=== PATIENT | female | born 1955 | race Caucasian/White ===

== ENCOUNTER 2018-02-02 05:49 | Inpatient (IN) | payer OTHER ==
[2018-01-27 10:52] VITALS: BMI 28.3
[2018-02-02] MEDS ORDERED: MIDAZOLAM HCL 2 MG/2 ML SINGLE DOSE VIAL ONE (06:50)
[2018-02-02] MEDS ORDERED: BUPIVACAINE HCL/PF (5 MG/ML) 30 ML VIAL IJ ONE (06:51)
[2018-02-02] MEDS ORDERED: SODIUM CHLORIDE 0.9% P/F 10 ML VIAL IJ ONE (06:51)
[2018-02-02] MEDS ORDERED: BUPIVACAINE LIPOSOME/PF (EXPAREL) 266 MG/20 ML VIAL ONE (06:51)
[2018-02-02] MEDS ORDERED: CELECOXIB 200 MG CAPSULE PO ONE (07:00)
[2018-02-02] MEDS ORDERED: TRANEXAMIC ACID 1000 MG/10 ML VIAL IVPUSH ONE (07:00)
[2018-02-02] MEDS ORDERED: VANCOMYCIN 1,000 MG in DEXTROSE 5%-WATER - 250 ML IVPB ONE (07:00)
[2018-02-02] MEDS ORDERED: oxyCODONE HCL 10 MG SUSTAINED ACTING TABLET PO ONE (07:00)
[2018-02-02] MEDS ORDERED: BENZOIN/ALOE VERA/STORAX/TOLU 58 ML BOTTLE ONE (07:09)
[2018-02-02] MEDS ORDERED: SUCCINYLCHOLINE CHLORIDE 200 MG/10 ML VIAL ONE (07:39)
[2018-02-02] MEDS ORDERED: ONDANSETRON 4 MG/2 ML VIAL ONE (07:39)
[2018-02-02] MEDS ORDERED: DEXAMETHASONE SOD PHOSPHATE 4 MG/1 ML VIAL ONE (07:39)
[2018-02-02] MEDS ORDERED: PROPOFOL 20 ML ONE ×3 (07:39→08:01)
[2018-02-02] MEDS ORDERED: BUPIVACAINE HCL/PF 0.5% (5MG/ML) 10 ML VIAL ONE (07:45)
[2018-02-02] MEDS ORDERED: ceFAZolin SODIUM 1 GM VIAL ONE ×3 (07:46→09:56)
[2018-02-02] MEDS ORDERED: PHENYLEPHRINE HCL 10 MG/1 ML SINGLE DOSE VIAL ONE (09:03)
[2018-02-02] MEDS ORDERED: ePHEDrine SULFATE 50 MG/1 ML AMPULE ONE (09:05)
[2018-02-02] MEDS ORDERED: MAG HYDROX/AL HYDROX/SIMETH 30 ML UNIT-DOSE CUP PO PRN (09:56)
[2018-02-02] MEDS ORDERED: ONDANSETRON 4 MG/2 ML VIAL IVPUSH PRN (09:56)
[2018-02-02] MEDS ORDERED: MAGNESIUM HYDROX 2400MG/30ML ORAL SUSPENSION 30 ML CUP PO PRN (09:56)
[2018-02-02] MEDS ORDERED: LACTATED RINGERS SOLUTION 1,000 ML IV SCH (10:00)
--- NOTE | 2018-02-02 10:00 | PN ---
Progress Note (short form) - Note Progress Note: 62F s/p left total knee replacement POD #0. -Pain control. -DVT PPx: -Chemical: ASA 81mg PO BID x 6 weeks. -Mechanical: WILLIAMS's, SCD's. -Incentive spirometry. -PT/OT/Rehab, OOB. -WBAT LLE. -Antibiotics: Ancef x 2 post op doses. -f/u post-op trial of void. -Diet as tolerated. -Keep dressing clean & dry. -Care per medical hospitalist team. -f/u [facility] [place] office 02/11/2018; call for appointment; [phone]. -Will follow. Kamar Pickard MD (Orthopaedic Surgery).
--- NOTE | 2018-02-02 10:03 | OP ---
Operative Note - Note: Operative Date: 02/02/18 Pre-Operative Diagnosis: Left knee DJD. Valgus deformity. Fixed flexion deformity Operation: 1. Left total knee replacement. 2. Left knee extensor mechanism lateral release Implants: [place]. Femur - 4. Tibia - 5. Poly - 11mm, TS. Patella - 27mm Post-Operative Diagnosis: Same as Pre-op Surgeon: Kamar Pickard Transit Clerk: Ash Pickard Anesthesiologist/SPORTS ANCHOR: Henny Jalloh Anesthesia: Spinal Estimated Blood Loss (mls): 0 Drains & Tubes with Location: 1 x deep HemoVac Fluid Volume Replaced (mls): 1,000 Operative Report Dictated: Yes
[2018-02-02] MEDS ORDERED: ACETAMINOPHEN 325 MG TABLET (FP) PO ONE (11:31)
[2018-02-02] MEDS: oxyCODONE HCL 5 MG TABLET PO PRN ×4 (13:52→20:05)
[2018-02-02] MEDS: ACETAMINOPHEN 325 MG TABLET (FP) PO SCH (17:14)
[2018-02-02] MEDS: CEFAZOLIN 1 GM/D5W 1 GRAM/50 ML BAG IVPB SCH (17:15)
--- NOTE | 2018-02-02 17:40 | CONSULT ---
Consultation: REQUESTING PROVIDER: Dr. Kamar Pickard CONSULT REQUEST: We have been asked to medically manage this patient perioperatively. HISTORY OF PRESENT ILLNESS: 62 year-old female with a PMH significant for anxiety, left knee DJD s/p left total knee replacement earlier today. REVIEW OF SYSTEMS: CONSTITUTIONAL: Absent: fever, chills, diaphoresis, generalized weakness, malaise, loss of appetite, weight change HEENT: Absent: rhinorrhea, nasal congestion, throat pain, throat swelling, difficulty swallowing, mouth swelling, ear pain, eye pain, visual changes CARDIOVASCULAR: Absent: chest pain, syncope, palpitations, irregular heart rate, lightheadedness , peripheral edema RESPIRATORY: Absent: cough, shortness of breath, dyspnea with exertion, orthopnea, wheezing, stridor, hemoptysis GASTROINTESTINAL: Absent: abdominal pain, abdominal distension, nausea, vomiting, diarrhea, constipation, melena, hematochezia GENITOURINARY: Absent: dysuria, frequency, urgency, hesitancy, hematuria, flank pain, genital pain MUSCULOSKELETAL: +left knee pain Absent: myalgia, arthralgia, joint swelling, back pain, neck pain SKIN: Absent: rash, itching, pallor HEMATOLOGIC/IMMUNOLOGIC: Absent: easy bleeding, easy bruising, lymphadenopathy, frequent infections ENDOCRINE: Absent: unexplained weight gain, unexplained weight loss, heat intolerance, cold intolerance NEUROLOGIC: Absent: headache, focal weakness or paresthesias, dizziness, unsteady gait, seizure, mental status changes, bladder or bowel incontinence PSYCHIATRIC: Absent: anxiety, depression, suicidal or homicidal ideation, hallucinations. PHYSICAL EXAMINATION Vital Signs Temperature 97.7 F 02/02/18 10:39 Pulse Rate 43 L 02/02/18 12:01 Respiratory Rate 18 02/02/18 12:01 Blood Pressure 102/48 02/02/18 12:01 O2 Sat by Pulse Oximetry (%) 99 02/02/18 12:00 GENERAL: Awake, alert, and fully oriented, in no acute distress. HEAD: Normal with no signs of trauma. EYES: Pupils equal, round and reactive to light, extraocular movements intact, sclera anicteric, conjunctiva clear. No lid lag. EARS, NOSE, THROAT: Ears normal, nares patent, oropharynx clear without exudates. Moist mucous membranes. LUNGS: Breath sounds equal, clear to auscultation bilaterally. No wheezes, and no crackles. No accessory muscle use. HEART: Regular rate and rhythm, S1 and S2 without murmur, rub or gallop. ABDOMEN: Soft, nontender, not distended UPPER EXTREMITIES: 2+ pulses, warm, well-perfused. No cyanosis. No clubbing. Cap refill <2 seconds. No peripheral edema. LOWER EXTREMITIES: SCD's, TEDs; surgical wound not visualized NEUROLOGICAL: Cranial nerves II-XII intact. Normal speech. Active Medications Generic Name Dose Route Start Last Admin Trade Name Freq PRN Reason Stop Dose Admin Acetaminophen 650 mg 02/02/18 18:00 02/02/18 17:14 Tylenol - PO 02/05/18 17:59 650 mg Q6H SHARON Administration Al Hydroxide/Mg Hydroxide 30 ml 02/02/18 09:56 Mylanta Oral Suspension - PO Q4H PRN DYSPEPSIA Aspirin 81 mg 02/02/18 22:00 Asa - PO BID SHARON Fentanyl 25 mcg 02/02/18 10:43 Sublimaze Injection - IVPUSH [id number] PRN PAIN-PACU ORDER X 4 DOSES ONLY Cefazolin Sodium 1 gram in 50 mls @ 100 mls/hr 02/02/18 17:00 02/02/18 17:15 Ancef 1 Gm Premixed Ivpb - IVPB 02/03/18 01:29 100 mls/hr Q8H SHARON Administration Lactated Ringer's 1,000 mls @ 100 mls/hr 02/02/18 10:00 Lactated Ringers Solution IV 02/03/18 06:00 ASDIR SHARON Magnesium Hydroxide 30 ml 02/02/18 09:56 Milk Of Magnesia - PO PRN PRN CONSTIPATION Ondansetron HCl 4 mg 02/02/18 09:56 Zofran Injection IVPUSH Q6H PRN NAUSEA Oxycodone HCl 5 mg 02/02/18 10:44 02/02/18 14:34 Roxicodone - PO 5 mg Q3H PRN Administration PAIN LEVEL 1-5 Oxycodone HCl 10 mg 02/02/18 10:44 02/02/18 17:15 Roxicodone - PO 10 mg Q3H PRN Administration PAIN LEVEL 6-10 Oxycodone HCl 10 mg 02/02/18 22:00 Oxycontin - PO 02/05/18 10:44 BID SHARON Pantoprazole Sodium 40 mg 02/02/18 10:00 Protonix - PO DAILY SHARON Senna/Docusate Sodium 2 tablet 02/02/18 10:00 Pericolace - PO BID [facility] ASSESSMENT/PLAN 62 year-old female with a PMH significant for anxiety, left knee DJD s/p left total knee replacement earlier today. Left total knee replacement 02/02 --perioperative antibiotics per surgery --Tylenol, oxycontin, oxycodone for pain --Zofran for nausea --protonix --bowel regimen: pericolace, milk of magnesia FEN Fluids: PO intake adequate Electrolytes: replete as indicated Nutrition: diabetic low sodium DVT prophylaxis: mechanical only, SCDs, oob, ambulation Physical therapy Dispo: We will continue to follow the patient. Thank you for this consultative opportunity. Full code. Visit type - Emergency Visit Emergency Visit: No - New Patient This patient is new to me today: Yes Date on this admission: 02/03/18 - Critical Care Critical Care patient: No
[2018-02-02] MEDS: oxyCODONE HCL 10 MG SUSTAINED ACTING TABLET PO SCH (21:56)
[2018-02-02] MEDS: SENNOSIDES/DOCUSATE COMBO (SENNA PLUS) TABLET (UD) PO SCH (21:56)
[2018-02-02] MEDS: ASPIRIN 81 MG CHEWABLE TABLETS PO SCH (21:57)
--- NOTE | 2018-02-02 23:58 | OP ---
DATE OF OPERATION: DATE OF DICTATION: 02/02/2018 SURGEON: Kamar Pickard M.D. CLASSIFICATION AND TREATMENT DIRECTOR: Ash Pickard M.D., Xiomara Winter PREOPERATIVE DIAGNOSIS: Fixed valgus, fixed flexed tricompartment osteoarthritis left knee. POSTOPERATIVE DIAGNOSIS: Fixed valgus, fixed flexed tricompartment osteoarthritis left knee. OPERATION PERFORMED: 1. Left posterior stabilized total knee arthroplasty ([place]). 2. Lateral release. ANESTHESIA: Spinal anesthesia with general conscious sedation. ANTIBIOTICS GIVEN: 2 g Kefzol, 1 g vancomycin preoperative, 1 g Kefzol given at the end of the procedure. OPERATION DETAILS: The patient was correctly identified, brought in operating room. Left lower extremity was prepped, pre-draped in the routine manner with Betadine scrub solution, wiped with alcohol, DuraPrep applied. Preoperative evaluation was review of the knee with a fixed flexed deformity of about 15 degrees and fixed valgus deformity of almost 40 degrees. Severe deformity encountered. Range of movement was from 15 degrees to 80 degrees. Timeout was called. Imaging was available for intraoperative evaluation. Midline incision utilized. The routine dissection was taken, splitting the quadriceps tendon longitudinally, coursing around the medial parapatellar margin to medial tubercle. The medial soft tissue was freed with a sharp blade off the proximal tibia. The patella was capsized laterally. The knee was flexed once the patella had been capsized to almost 100 to 110 degrees and held in this position. The bony cuts were made, first the patella from patella ligament to quadriceps tendon, and the jig applied for a 27 mm patella button. The tibial cut was made neutral to the level of the genaro on the lateral side. We used the extramedullary jig alignment system of [place]. The femur was then cut appropriately using the jig system. We proximalized the joint line by 4 mm. This gave us a fixed flexion deformity. The femoral component measured size 5, but we elected to use the size 4 Triathlon poly PS size 4 femoral component, and trialing this with a size 5 universal baseplate and a size 11 polyethylene liner, gave anatomical alignment on the table after all appropriate jig cuts were made, and we were very satisfied with this outcome accordingly. Stability was excellent with the 11 mm spacer, and range of movement with quadriceps tendon held with Hulka clamps revealed a range of movement from 0 to about 90 degrees, this because of the tightness of the quadriceps mechanism. The patella was subluxing completely off, necessitating a lateral release. This was performed from a distal to superior hoping to save the superior lateral retinacular vessel. Once this had been performed, cementing was in 1 stage after thorough preparation and lavage with bone bed after all the jig cuts were made. Cementing was in one stage, patella, femur, and then tibia, size 11 mm polyethylene liner TS was utilized for stable fixation. The patella tracking after patella lateral release was excellent. Range of movement with the tissues closed was from 0 to 110 degrees. The closure was as follows: quadriceps tendon 1 Vicryl interrupted sutures, subcutaneous 1 and 2-0 Vicryl, skin 3-0 Monocryl with Steri-Strips, drainage one 8-inch Hemovac x1 which unfortunately came out at the end of the procedure. No complications. Difficult operation but went well. MD COURTNEY Thomson/[id number] MTDD
[2018-02-03] MEDS: CEFAZOLIN 1 GM/D5W 1 GRAM/50 ML BAG IVPB SCH (01:09)
[2018-02-03] MEDS: ACETAMINOPHEN 325 MG TABLET (FP) PO SCH ×3 (01:20→19:19)
[2018-02-03] MEDS: oxyCODONE HCL 5 MG TABLET PO PRN ×3 (01:23→20:08)
[2018-02-03 08:21] LABS: HEMOGLOBIN 12.3 GM/dl (10.7-15.3); MCH 31.6 pg (25.7-33.7); MEAN CELL VOLUME 92.8 fl (80-96); MEAN PLT VOLUME 8.8 fl (7.5-11.1); PLATELET COUNT 180 K/MM3 (134-434); RBC 3.88 M/mm3 (3.60-5.2); RDW 12.1 % (11.6-15.6); WHITE BLOOD COUNT 9.4 K/mm3 (4.0-10.8)
[2018-02-03 08:41] LABS: ANION GAP 5 MMOL/L (8-16); BLOOD UREA NITROGEN 11 mg/dl (7-18); CALCIUM 8.5 mg/dl (8.4-10.2); CHLORIDE 101 mmol/L (98-107); CO2 30 mmol/L (22-28); CREATININE 0.7 mg/dl (0.6-1.3); GLUCOSE,RANDOM 110 mg/dl (74-106); POTASSIUM 4.4 mmol/L (3.5-5.1); SODIUM 136 mmol/L (136-145)
--- NOTE | 2018-02-03 09:12 | PN ---
Progress Note (short form) - Note Progress Note: POD #1 Alert. Sitting in chair at bedside. C/o incisional tenderness. Adequate pain control via PRN meds. States shes been OOB and ambulated to bathroom. Voiding spontaneously. Tolerating PO diet. Denies n/v/f/c, CP or SOB. Last Vital Signs Temp Pulse Resp BP Pulse Ox 98.0 F 62 20 133/68 100 02/03/18 06:44 02/03/18 06:44 02/03/18 06:44 02/03/18 06:44 02/03/18 06:44 CBC, BMP 02/03/18 07:30 02/03/18 07:30 Gen: nad LLE: catarino wrap from toes to mid-thigh. Dressing c/d/i. Ice pack in place. Foot warm. Palpable DP/PT. Problem List - Problems (1) Left knee DJD Assessment/Plan: Left knee DJD. Valgus deformity. Fixed flexion deformity POD #1 s/p 1. Left total knee replacement. 2. Left knee extensor mechanism lateral release OOB and ambulate with PT --> WBAT Pain management PRN Ice pack DVT PPx with ASA 81mg PO BID x6 weeks & TEDs/SCD (non-op leg) Incentive Spirometer Cont care per Medicine DC planning --> f/u [facility] [place] [facility] --> call for an appointment Above plan discussed with Dr. Ash Pickard and agrees. Code(s): M17.12 - UNILATERAL PRIMARY OSTEOARTHRITIS, LEFT KNEE
[2018-02-03] MEDS: PANTOPRAZOLE 40 MG TABLET (FP) PO SCH ×2 (10:23→10:31)
[2018-02-03] MEDS: ASPIRIN 81 MG CHEWABLE TABLETS PO SCH ×2 (10:23→21:13)
[2018-02-03] MEDS: oxyCODONE HCL 10 MG SUSTAINED ACTING TABLET PO SCH ×2 (10:29→21:13)
[2018-02-03] MEDS: SENNOSIDES/DOCUSATE COMBO (SENNA PLUS) TABLET (UD) PO SCH ×2 (10:30→21:11)
--- NOTE | 2018-02-03 13:52 | PN ---
Physical Exam: SUBJECTIVE: Patient seen and examined at bedside. OBJECTIVE: Vital Signs Period Temp Pulse Resp BP Sys/Alvarado Pulse Ox Last 24 Hr 97.8 F-98.0 F 50-62 17-20 110-133/50-68 99-100 GENERAL: The patient is awake, alert, and fully oriented, in no acute distress. LUNGS: Breath sounds equal, clear to auscultation bilaterally, no wheezes, no crackles, no accessory muscle use. HEART: Regular rate and rhythm, S1, S2 ABDOMEN: Soft, nontender, nondistended LLE: Surgical dressing c/d/i; SCDs, TEDs NEUROLOGICAL: Cranial nerves II through XII grossly intact. Normal speech Laboratory Results - last 24 hr 02/03/18 02/03/18 07:30 07:30 WBC 9.4 RBC 3.88 Hgb 12.3 Hct 36.0 MCV 92.8 MCH 31.6 MCHC 34.0 RDW 12.1 Plt Count 180 MPV 8.8 Sodium 136 Potassium 4.4 Chloride 101 Carbon Dioxide 30 H Anion Gap 5 L BUN 11 Creatinine 0.7 Creat Clearance w eGFR > 60 Random Glucose 110 H Calcium 8.5 Active Medications Generic Name Dose Route Start Last Admin Trade Name Freq PRN Reason Stop Dose Admin Acetaminophen 650 mg 02/02/18 18:00 02/03/18 06:16 Tylenol - PO 02/05/18 17:59 650 mg Q6H SHARON Administration Al Hydroxide/Mg Hydroxide 30 ml 02/02/18 09:56 Mylanta Oral Suspension - PO Q4H PRN DYSPEPSIA Aspirin 81 mg 02/02/18 22:00 02/03/18 10:23 Asa - PO 81 mg BID SHARON Administration Fentanyl 25 mcg 02/02/18 10:43 Sublimaze Injection - IVPUSH [id number] PRN PAIN-PACU ORDER X 4 DOSES ONLY Magnesium Hydroxide 30 ml 02/02/18 09:56 Milk Of Magnesia - PO PRN PRN CONSTIPATION Ondansetron HCl 4 mg 02/02/18 09:56 Zofran Injection IVPUSH Q6H PRN NAUSEA Oxycodone HCl 5 mg 02/02/18 10:44 02/02/18 14:34 Roxicodone - PO 5 mg Q3H PRN Administration PAIN LEVEL 1-5 Oxycodone HCl 10 mg 02/02/18 10:44 02/03/18 06:15 Roxicodone - PO 10 mg Q3H PRN Administration PAIN LEVEL 6-10 Oxycodone HCl 10 mg 02/02/18 22:00 02/03/18 10:29 Oxycontin - PO 02/05/18 10:44 10 mg BID SHARON Administration Pantoprazole Sodium 40 mg 02/02/18 10:00 02/03/18 10:31 Protonix - PO 40 mg DAILY SHARON Administration Senna/Docusate Sodium 2 tablet 02/02/18 10:00 02/03/18 10:30 Pericolace - PO 2 tablet BID SHARON Administration ASSESSMENT/PLAN 62 year-old female with a PMH significant for anxiety, left knee DJD s/p left total knee replacement. Left total knee replacement 02/02 --POD #1 --perioperative antibiotics per surgery --Tylenol, oxycontin, oxycodone for pain --Zofran for nausea --protonix --bowel regimen: pericolace, milk of magnesia FEN Fluids: PO intake adequate Electrolytes: replete as indicated Nutrition: diabetic low sodium DVT prophylaxis: ASA 81mg BID x 6 weeks; SCDs, oob, ambulation Physical therapy Dispo: We will continue to follow the patient. Thank you for this consultative opportunity. Full code. Visit type - Emergency Visit Emergency Visit: No - New Patient This patient is new to me today: Yes Date on this admission: 02/03/18 - Critical Care Critical Care patient: No
--- NOTE | 2018-02-03 15:24 | PN ---
Progress Note (short form) - Note Progress Note: Anesthesiology Post-op 62 y.o. woman POD#1 s/p left TKA with regional/neuraxial anesthesia. She is walking with a walker with minimal difficulty. She does admit to some pain but it appears to be well managed with pain meds. VSS. 62 y.o. woman with stable post-operative course. Continue present management.
[2018-02-04] MEDS: ACETAMINOPHEN 325 MG TABLET (FP) PO SCH ×2 (06:41→06:45)
[2018-02-04] MEDS: oxyCODONE HCL 5 MG TABLET PO PRN (06:46)
[2018-02-04 06:52] VITALS: BP 112/55; PULSE 76; TEMP 99.3
[2018-02-04 08:18] LABS: HEMATOCRIT 33.3 % (32.4-45.2); HEMOGLOBIN 11.2 GM/dl (10.7-15.3); MCH 30.9 pg (25.7-33.7); MCHC 33.6 g/dl (32.0-36.0); MEAN CELL VOLUME 91.9 fl (80-96); MEAN PLT VOLUME 8.7 fl (7.5-11.1); PLATELET COUNT 159 K/MM3 (134-434); RBC 3.62 M/mm3 (3.60-5.2); RDW 12.5 % (11.6-15.6); WHITE BLOOD COUNT 10.2 K/mm3 (4.0-10.8)
--- NOTE | 2018-02-04 10:38 | DS ---
Physical Exam: SUBJECTIVE: Patient seen and examined OBJECTIVE: Vital Signs Period Temp Pulse Resp BP Sys/Alvarado Pulse Ox Last 24 Hr 97.4 F-99.3 F 67-105 18-20 100-151/41-74 98-100 PHYSICAL EXAM GENERAL: The patient is awake, alert, and fully oriented, in no acute distress. LUNGS: Breath sounds equal, clear to auscultation bilaterally, no wheezes, no crackles, no accessory muscle use. HEART: Regular rate and rhythm, S1, S2 ABDOMEN: Soft, nontender, nondistended LLE: Surgical dressing c/d/i; SCDs, TEDs NEUROLOGICAL: Cranial nerves II through XII grossly intact. Normal speech LABS Laboratory Results - last 24 hr 02/04/18 08:00 WBC 10.2 RBC 3.62 Hgb 11.2 Hct 33.3 MCV 91.9 MCH 30.9 MCHC 33.6 RDW 12.5 Plt Count 159 MPV 8.7 HOSPITAL COURSE: Date of Admission:02/02/18 Date of Discharge: 02/04/18 62 year-old female with a PMH significant for anxiety, left knee DJD s/p left total knee replacement on 02/02. Uncomplicated post-operative course. Left total knee replacement 02/02 --perioperative antibiotics per surgery --Tylenol, oxycontin, oxycodone for pain --Zofran for nausea --protonix --bowel regimen: pericolace, milk of magnesia --ASA 81mg BID x 6 weeks Minutes to complete discharge: 35 Discharge Summary Reason For Visit: LEFT KNEE OSTEOARTHRITIS Current Active Problems Left knee DJD (Acute) Condition: Improved - Instructions Diet, Activity, Other Instructions: Dr. Pickard Discharge Instructions for Knee Replacement Post Operative Instructions Physical activity Physical Therapist will come to your home for the first 5 days. You will be set up with outpatient PT at your first post-operative visit. Use assistive devices for ambulation at all times. Weight bearing as tolerated on your surgical side. Do not put pillow under knee. May put pillow under heel. Wound care Leave your surgical dressing in place. Do not change the dressing until seen by your surgeon in the office. No baths or showers. Do not submerge your incision. Do not apply any ointments or lotions to your incision. Please call the office if your dressing is soiled/dirty or is falling off. Apply Graduated Compression Stockings (TEDS) to both lower extremities - remove daily for hygiene ONLY. Diet There are no dietary restrictions. Eat healthy, high-fiber foods. Drink 6 to 8 glasses of liquid each day. This will assist in keeping your bowels are regular. Pain management Any pain prescription medication ordered should be taken as prescribed for moderate to severe pain. Do not take additional Tylenol while taking Percocet. Take Aspirin 81 mg two times a day for a total of 6 weeks to prevent blood clots. Call Dr. Pickard for any of the following: Severe pain not relieved by medication Fever of 101 or higher Excessive bleeding or drainage on dressing Inability to urinate If you experience chest pain or shortness of breath, please seek emergency care immediately. Please call the office at to confirm your post-op appointment for the week following surgery. Disposition: VNS/HOME HEALTH CARE - Home Medications Comprehensive Discharge Medication List: Ambulatory Orders Aspirin [ASA -] 81 mg PO WEEKLY 01/27/18 Calcium Phosphate Trib/Vit D3 [Calcium + Vitamin D3 Gummies] 1 each PO DAILY This patient is new to me today: No Emergency Visit: No Critical Care patient: No - Discharge Referral Referred to [facility] No
--- NOTE | 2018-02-07 15:16 | PATH ---
Surgical Pathology Report Patient Name: BJ YODER Med. Rec. #: [id number] /Age/Gender: 1955 (Age: 62) / F Account: [id number] Location: [facility] MED-SURG Taken: 02/02/2018 Received: 02/02/2018 Reported: 02/07/2018 Physicians: Kamar Pickard M.D. Specimen(s) Received LEFT KNEE BONES Clinical History Left knee osteoarthritis Final Diagnosis KNEE BONES, LEFT, TOTAL KNEE REPLACEMENT: DEGENERATIVE JOINT DISEASE. Electronically Signed Farhana Brooks M.D. Gross Description Received in formalin labeled "left knee bones," is a 13.0 x 10.0 x 2.0 cm aggregate of multiple gutierrez portions of bone and soft tissue. The tibial plateau measures 7.7 x 6.0 x 1.7 cm. No there are no areas of eburnation identified. The articular surfaces are gutierrez-yellow and diffusely granular. The underlying trabecular bone is yellow and hard. [employer] sections are submitted in one cassette, following decalcification. 02/04/2018 [facility]02/04/2018
== END 2018-02-04 11:22 | disposition home health service (06) | DRG 302 ==
LOC: FM/S 05:49
PROVIDERS: ADMIT Orthopaedic Surgery Orthopaedic Surgery of the Spine; ATTEND Orthopaedic Surgery Orthopaedic Surgery of the Spine
PROC: 0SRD0J9 Replacement of Left Knee Joint with Synthetic Substitute, Cemented, Open Approach (ICD-10-PCS; principal; 2018-02-02 08:00)
DX: M17.12 Unilateral primary osteoarthritis, left knee (principal); M21.062 Valgus deformity, not elsewhere classified, left knee; M21.262 Flexion deformity, left knee; F41.9 Anxiety disorder, unspecified
CPT/HCPCS: 36415; 73560-TC-LT-FY; 80048; 85027; 88304-TC; 88311-TC; 94760; 97116-GP; 97162-GP

== ENCOUNTER 2018-03-30 07:54 | Day surgery (SDC) | payer OTHER ==
[2018-03-22 14:47] VITALS: BMI 28.3
[2018-03-30] MEDS ORDERED: TRANEXAMIC ACID 1000 MG/10 ML VIAL IVPUSH ONE (08:06)
[2018-03-30] MEDS ORDERED: VANCOMYCIN 1,000 MG in DEXTROSE 5%-WATER - 250 ML IVPB ONE (08:06)
[2018-03-30] MEDS ORDERED: morphine CARPU-JECT 10 MG/1 ML DISP.SYRIN ONE (08:26)
[2018-03-30] MEDS ORDERED: BUPIVACAINE HCL/PF 2.5 MG/ML - 30 ML VIAL IJ ONE (08:29)
[2018-03-30] MEDS ORDERED: KETOROLAC TROMETHAMINE 60 MG/2 ML VIAL ONE (08:29)
[2018-03-30] MEDS ORDERED: SODIUM CHLORIDE 0.9% P/F 10 ML VIAL IJ ONE ×2 (08:30→11:54)
[2018-03-30] MEDS ORDERED: EPINEPHrine/PF 1 MG/1 ML (1:1,000) AMPULE ONE (08:30)
[2018-03-30] MEDS ORDERED: BENZOIN TINCTURE SWABSTICK TP ONE (08:31)
[2018-03-30] MEDS ORDERED: MIDAZOLAM HCL 2 MG/2 ML SINGLE DOSE VIAL ONE (10:39)
[2018-03-30] MEDS ORDERED: BUPIVACAINE LIPOSOME/PF (EXPAREL) 266 MG/20 ML VIAL ONE ×2 (10:40→10:45)
[2018-03-30] MEDS ORDERED: PROPOFOL 20 ML ONE ×2 (11:44)
[2018-03-30] MEDS ORDERED: CLINDAMYCIN PHOSPHATE 600 MG/4 ML VIAL ONE (11:52)
[2018-03-30] MEDS ORDERED: VANCOMYCIN 1,000 MG VIAL (RESTRICTED TO ID ONLY) ONE (11:52)
[2018-03-30] MEDS ORDERED: METOPROLOL TARTRATE 5 MG/5 ML VIAL ONE (12:10)
--- NOTE | 2018-03-30 12:30 | PN ---
Progress Note (short form) - Note Progress Note: During limb skin prep, prior to beginning the case, patient manifest new-onset atrial fibrillation. After discussion with anesthesiology team, decision made to cancel the operation. Pt. will pursue outpatient cardiology consultation for further work-up and management. Pt. will follow-up with [facility] within 1-2 weeks of hospital discharge today. Kamar Pickard MD (Orthopaedic Surgery).
[2018-03-30] MEDS ORDERED: ONDANSETRON 4 MG/2 ML VIAL IVPUSH ONE (15:30)
[2018-03-30] MEDS ORDERED: ONDANSETRON 4 MG/2 ML VIAL ONE (16:12)
--- NOTE | 2018-03-30 16:19 | CON.CARD ---
Consult Consult Specialty:: Cardiology Referred by:: Dr. Pickard Reason for Consultation:: newly dx afib - History of Present Illness Chief Complaint: here for elective revision of TKR found to have newly dx afib with RVR History of Present Illness: 63 year old woman with h/o OA s/p L TKR, anxiety came today for elective revision of TKR, preop found to have newly diagnosed atrial fibrillation with RVR reportedly up to 150bpm. Pt did have spinal anesthesia but surgery was cancelled. Pt received IV Lopressor and was brought to recovery room where she remains in afib with controlled VR. Pt seen and examined in [facility]. Pt states she follows with a mica washer gluer due to h/ o panic attacks, she has had a stress test in the past that was normal. she was never told she has afib before. she does have intermittent palpitations attributed to her anxiety/panic attacks. denies chest pain, sob, pnd, orthopnea, LE edema. No lightheadedness, dizziness , syncope, or near syncope. - History Source History Provided By: Patient Limitations to Obtaining History: No Limitations - Past Medical History Psych: Yes: Anxiety - Alcohol/Substance Use Hx Alcohol Use: No - Smoking History Smoking history: Former smoker Have you smoked in the past 12 months: No If you are a former smoker, when did you quit?: 1987 - Social History Usual Living Arrangement: With Significant Other ADL: Independent History of Recent Travel: Yes Home Medications - Allergies Allergies/Adverse Reactions: Allergies Allergy/AdvReac Type Severity Reaction Status Date / Time amoxicillin Allergy Severe Itching Verified 03/22/18 14:47 beet Allergy Severe UNKNOWN Verified 03/22/18 14:47 ciprofloxacin [From Cipro] Allergy Severe Itching Verified 03/22/18 14:47 Penicillins AdvReac Severe Itching Verified 03/22/18 14:47 - Home Medications Home Medications: Ambulatory Orders Calcium Phosphate Trib/Vit D3 [Calcium + Vitamin D3 Gummies] 1 each PO DAILY Aspirin [ASA -] 81 mg PO BID tab.chew 02/04/18 Apixaban [Eliquis] 5 mg PO BID 30 Days #60 tablet 03/30/18 Metoprolol Succinate [Toprol Xl -] 25 mg PO DAILY #30 tab.sr.24h 03/30/18 Family Disease History - Family Disease History Family History: Denies Review of Systems - Review of Systems Constitutional: denies: No Symptoms, Chills, Diaphoresis, Fever, Lethargy, Loss of Appetite, Malaise, Night Sweats, Unintentional Wgt. Loss, Weakness, Other Eyes: denies: No Symptoms, Blind Spots, Blurred Vision, Double Vision, Eye Pain , Floaters, Photophobia, Recent Change in Vision, Other HENT: denies: No Symptoms, Difficult Swallowing, Ear Discharge, Ear Pain, Epistaxis, Gingival Bleeding, Hearing Loss, Mouth Swelling, Nasal Congestion, Ocular Prosthesis, Throat Pain, Toothache, Ringing in Ears, Other Neck: denies: No Symptoms, Decreased ROM, Lumps, Pain on Movement, Stiffness, Swollen Glands, Tenderness, Other Cardiovascular: reports: Palpitations. denies: No Symptoms, Chest Pain, Edema, Shortness of Breath, Other Respiratory: denies: No Symptoms, Cough, Exercise Intolerance, Hemoptysis, Orthopnea, PND, Snoring, SOB, SOB on Exertion, Wheezing, Other Gastrointestinal: denies: No Symptoms, Abdominal Pain, Bloating, Constipation, Diarrhea, Dysphagia, Indigestion, Melena, Nausea, Rectal Bleeding, Vomiting, Vomiting Blood, Other Genitourinary: denies: No Symptoms, Burning, Discharge, Dysuria, Flank Pain, Frequency, Hematuria, Incontinence, Lesions, Menses, Pain, Testicular Mass, Testicular Pain, Testicular Swelling, Urgency, Vaginal Bleeding, Other Breasts: denies: No Symptoms Reported, See HPI, Breast Implants, Discharge from Nipple, Lumps, Pain, Skin Changes, Other Musculoskeletal: denies: No Symptoms, Back Pain, Crepitus, Decreased ROM, Extremity Pain, Joint Pain, Joint Swelling, Muscle Pain, Muscle Cramps, Muscle Weakness, Other Integumentary: denies: No Symptoms, Blister, Bruising, Change in Color, Eczema, Erythema, Incision, Lesions, Lump, Pallor, Pruritis, Rash, Wound, Other Neurological: denies: No Symptoms, Change in LOC, Change in Speech, Confusion, Dizziness, Headache, Incoordination, Numbness, Parasthesia, Pre-Existing Deficit , Seizure, Syncope, Tremors, Unsteady Gait, Weakness, Other Endocrine: denies: No Symptoms, Excessive Sweating, Flushing, Increased Hunger, Increased Thirst, Intolerance to Cold, Intolerance to Heat, Unexplained Weight Gain, Unexplained Weight Loss, Other Hematology/Lymphatic: denies: No Symptoms, Easily Bruised, Excessive Bleeding, Swollen Glands, Other Psychiatric: denies: No Symptoms, Altered Sleep Pattern, Anxiety, Depression, Hallucinations, Panic, Paranoia, Suicidal, Other Vital Signs: Vital Signs Temperature 97.6 F 03/30/18 12:33 Pulse Rate 78 03/30/18 15:30 Respiratory Rate 14 03/30/18 15:30 Blood Pressure 105/74 03/30/18 15:30 O2 Sat by Pulse Oximetry (%) 100 03/30/18 15:30 Constitutional: Yes: Well Nourished, No Distress, Calm Eyes: Yes: WNL, Conjunctiva Clear, EOM Intact HENT: Yes: WNL, Atraumatic, Normocephalic Neck: Yes: WNL, Supple, Trachea Midline Respiratory: Yes: WNL, Regular, CTA Bilaterally Gastrointestinal: Yes: WNL, Normal Bowel Sounds, Soft Renal/: Yes: WNL Cardiovascular: Yes: Pulse Irregular. No: Regular Rate and Rhythm, Bradycardia , Tachycardia, Gallop, Rub, Varicosities JVD: No Carotid Bruit: No PMI: Non-Displaced Heart Sounds: Yes: S1, S2. No: Split S2, S3, S4, Clicks, Gallop, Rub, Bruit Murmur: No: Systolic Murmur, Diastolic Murmur Musculoskeletal: Yes: WNL Extremities: Yes: WNL Edema: No Peripheral Pulses WNL: Yes Neurological: Yes: Alert, Oriented Psychiatric: Yes: Alert, Oriented - Other Data ekg-Afib 76bpm, no sig st abnl Imaging - Results EKG: Report Reviewed, Image Reviewed Assessment/Plan 63 year old woman with h/o OA s/p L TKR, anxiety came today for elective revision of TKR, preop found to have newly diagnosed atrial fibrillation with RVR reportedly up to 150bpm. Pt did have spinal anesthesia but surgery was cancelled. Pt received IV Lopressor and was brought to recovery room where she remains in afib with controlled VR. Pt seen and examined in [facility]. Pt states she follows with a mica washer gluer due to h/ o panic attacks, she has had a stress test in the past that was normal. she was never told she has afib before. she does have intermittent palpitations attributed to her anxiety/panic attacks. Atrial fibrillation-newly diagnosed -likely paroxysmal afib -HR is currently well controlled, IV lopressor was given approximately 4 hours ago -CHADS-2 VASC score 1 c/w 1.9% annual risk of stroke -discussed risk vs benefit of using ASA alone or full AC for thromboembolic ppx -decided to start eliquis 5mg bid for now, pt will discuss further with her mica washer gluer (she has an appointment next wednesday) -d/w anesthesiology in regards to spinal anesthesia and AC and felt that safe to start 6 hours post spinal, she will start eliquis tomorrow am -start Toprol XL 25mg daily -Rx sent to pharmacy for both meds -pt is acceptable for discharge home from a cardiac standpoint with a plan to fup with her mica washer gluer next week (Dr. Bassett in [place])
[2018-03-30 17:08] VITALS: TEMP 98
[2018-03-30 18:44] VITALS: BP 127/68; PULSE 74
--- NOTE | 2018-03-31 09:22 | EKG ---
Test Reason : Blood Pressure : / mmHG Vent. Rate : 076 BPM Atrial Rate : 085 BPM P-R Int : 000 ms QRS Dur : 084 ms QT Int : 372 ms P-R-T Axes : 000 031 033 degrees QTc Int : 418 ms ATRIAL FIBRILLATION ABNORMAL ECG NO PREVIOUS ECGS AVAILABLE Confirmed by DURAN QUESADA MD ([id number]) on 03/31/2018 9:22:23 AM Referred By: Kamar Pickard Confirmed By:DURAN QUESADA MD
== END 2018-03-30 20:50 | disposition home or self-care (01) ==
LOC: FM/S 07:54 → UNDOADMIN 07:54 → FASU 07:54 → EDSTATUS 14:00 → FASU 20:50 → UNDODISIN 20:50
PROVIDERS: ATTEND Orthopaedic Surgery Orthopaedic Surgery of the Spine
PROC: 0SRW0JZ Replacement of Left Knee Joint, Tibial Surface with Synthetic Substitute, Open Approach (ICD-10-PCS; 2018-03-30)
PROC: 0SPW0JZ Removal of Synthetic Substitute from Left Knee Joint, Tibial Surface, Open Approach (ICD-10-PCS; principal; 2018-03-30 10:00)
DX: Z53.09 Procedure and treatment not carried out because of other contraindication (principal); M17.12 Unilateral primary osteoarthritis, left knee; I48.91 Unspecified atrial fibrillation; Z96.652 Presence of left artificial knee joint; Z87.891 Personal history of nicotine dependence; Z79.82 Long term (current) use of aspirin
CPT/HCPCS: 93005

== ENCOUNTER 2018-06-08 06:00 | Inpatient (IN) | payer OTHER ==
[2018-06-08] MEDS ORDERED: VANCOMYCIN 1 GRAM (PRE-DOCKED) 1,000 MG/250 ML BAG IVPB ONE (06:29)
[2018-06-08] MEDS ORDERED: DEXAMETHASONE SOD PHOSPHATE 4 MG/1 ML VIAL ONE ×2 (07:10→07:22)
[2018-06-08] MEDS ORDERED: VANCOMYCIN 1,000 MG VIAL (RESTRICTED TO ID ONLY) ONE (07:10)
[2018-06-08] MEDS ORDERED: SUCCINYLCHOLINE CHLORIDE 200 MG/10 ML VIAL ONE (07:10)
[2018-06-08] MEDS ORDERED: ceFAZolin SODIUM 1 GM VIAL ONE ×3 (07:10→10:02)
[2018-06-08] MEDS ORDERED: ONDANSETRON 4 MG/2 ML VIAL ONE ×3 (07:10→11:03)
[2018-06-08] MEDS ORDERED: PROPOFOL 20 ML ONE ×2 (07:10→07:23)
[2018-06-08 07:15] VITALS: BMI 29.2
[2018-06-08] MEDS ORDERED: LIDOCAINE HCL/PF 2% SDV 5ML VIAL ONE (07:22)
[2018-06-08] MEDS ORDERED: TRANEXAMIC ACID 1000 MG/10 ML VIAL ONE ×2 (07:22→10:02)
[2018-06-08] MEDS ORDERED: SODIUM CHLORIDE 0.9% P/F 10 ML VIAL IJ ONE (07:22)
[2018-06-08] MEDS ORDERED: BUPIVACAINE HCL/PF 0.5% (5MG/ML) 10 ML VIAL ONE (07:26)
[2018-06-08] MEDS ORDERED: BENZOIN/ALOE VERA/STORAX/TOLU 58 ML BOTTLE ONE (07:30)
[2018-06-08] MEDS ORDERED: BUPIVACAINE LIPOSOME/PF (EXPAREL) 266 MG/20 ML VIAL ONE (07:43)
[2018-06-08] MEDS ORDERED: MIDAZOLAM HCL 2 MG/2 ML SINGLE DOSE VIAL ONE ×2 (07:43→08:10)
[2018-06-08] MEDS ORDERED: ROCURONIUM BROMIDE 50 MG/5 ML VIAL ONE (07:53)
[2018-06-08] MEDS ORDERED: KETAMINE HCL 200 MG/20 ML VIAL ONE (08:27)
[2018-06-08] MEDS ORDERED: ePHEDrine SULFATE 50 MG/1 ML AMPULE ONE (08:41)
[2018-06-08] MEDS ORDERED: LABETALOL HCL 5 MG/1 ML (100MG/20 ML VIAL) ONE (09:13)
[2018-06-08] MEDS ORDERED: NEOSTIGMINE METHYLSULFATE 0.5 MG/ML - 10 ML MDV ONE (10:27)
[2018-06-08] MEDS ORDERED: ONDANSETRON 4 MG/2 ML VIAL IVPUSH PRN ×2 (10:38→11:18)
[2018-06-08] MEDS ORDERED: oxyCODONE HCL 5 MG TABLET PO PRN ×2 (10:39)
[2018-06-08] MEDS ORDERED: ACETAMINOPHEN 325 MG TABLET (FP) PO SCH (10:45)
[2018-06-08] MEDS ORDERED: LACTATED RINGERS SOLUTION 1,000 ML IV SCH ×2 (10:45→11:30)
[2018-06-08] MEDS ORDERED: ACETAMINOPHEN 325 MG TABLET (FP) ONE (11:04)
[2018-06-08] MEDS ORDERED: ALPRAZolam 0.25 MG TABLET PO PRN (11:18)
[2018-06-08] MEDS ORDERED: MAGNESIUM HYDROX 2400MG/30ML ORAL SUSPENSION 30 ML CUP PO PRN (11:18)
[2018-06-08] MEDS ORDERED: MAG HYDROX/AL HYDROX/SIMETH 30 ML UNIT-DOSE CUP PO PRN (11:18)
--- NOTE | 2018-06-08 11:24 | PN ---
Progress Note (short form) - Note Progress Note: 63F s/p LEFT knee lateral patellar retinacular release and quadricepsplasty POD #0. -Pain control. -DVT PPx: -Chemical: Eliquis 5mg PO BID; ASA 81mg qD x 6 weeks. -Mechanical: WILLIAMS's, SCD's. -Incentive spirometry q15 min. -PT/OT/Rehab, OOB. -WBAT LLE. -NO ROM LEFT KNEE. -Alden brace (locked in extension) to be delivered). -Antibiotics: Ancef x 2 post op doses. -f/u post-op trial of void. -f/u drain output; ok to d/c when <30cc/8 hrs. -Diet as tolerated. -Keep dressing clean & dry. -Care per medical hospitalist team. -f/u [facility] [place] office 06/17/2017; call for appointment; . -Will follow. Kamar Pickard MD (Orthopaedic Surgery).
--- NOTE | 2018-06-08 11:26 | OP ---
Operative Note - Note: Operative Date: 06/08/18 Pre-Operative Diagnosis: Left TKA patellar instability Operation: LEFT knee: 1. Lateral patellar retinacular release. 2. Quadricepsplasty Findings: Oblique quadriceps tendon trajectory with severe Q-angle Post-Operative Diagnosis: Same as Pre-op Surgeon: Kamar Pickard Director Channel: Ash Pickard Anesthesiologist/ROW BOSS: Henny Jalloh Anesthesia: General, Local Estimated Blood Loss (mls): 0 Drains & Tubes with Location: 1 x deep HemoVac Fluid Volume Replaced (mls): 1,000 Operative Report Dictated: Yes
[2018-06-08] MEDS ORDERED: oxyCODONE HCL 5 MG TABLET ONE ×2 (11:43→12:06)
[2018-06-08] MEDS: ACETAMINOPHEN 325 MG TABLET (FP) PO SCH ×2 (12:14→17:21)
--- NOTE | 2018-06-08 14:00 | OP ---
DATE OF OPERATION: 06/08/2018 SURGEON: Kamar Pickard MD GERIATRIC SOCIAL WORKER: Ash Pickard MD, and [place] PREOPERATIVE DIAGNOSIS: Dislocated left patella following left total knee arthroplasty. POSTOPERATIVE DIAGNOSIS: Dislocated left patella following left total knee arthroplasty due to quadriceps muscle malalignment. ANESTHESIA: General anesthesia. ANTIBIOTICS GIVEN: Two g Kefzol and 1 g vancomycin preoperative. OPERATION PERFORMED: 1. Medial plication lateral release. 2. Quadricepsplasty. 3. Synovectomy. 4. Complex wound closure. OPERATION DETAILS: Patient correctly identified and brought into the operating room. The lower extremity was prepped, free draped in the routine manner with Betadine scrub solution, wiped off with alcohol, DuraPrep applied. Timeout was called. Imaging was available for intraoperative evaluation. INDICATIONS: Patient had undergone a previous left total knee arthroplasty with a resultant dislocated patella in the early postoperative period. Patient has been ambulating with a stiff knee. The plan was to evaluate the orientation of the implants, correct any malpositioned implant if necessary, and realign the quadriceps mechanism if necessary. FINDINGS: After exposing the knee through the original incision extending approximately and distally by approximately 1.5 cm, a careful dissection was performed freeing the subcutaneous fat off the actual underlying quadriceps mechanism. This then enabled a clear evaluation and appreciation of what is occurring. The patella was lateral to the femoral condyle. Once the medial arthrotomy was performed and that included a longitudinal incision at the quads tendon with a planned quadricepsplasty and possible lateral release or medial plication. The entire problem was appreciated that was the quadriceps was in a markedly abnormal position being extensively lateral to the actual femur itself. This explained the initial problem being that of a subluxing and dislocating patella in the presence of well-positioned implants which clearly at op were completely straight. We reviewed the mechanical axis of the knee, the sagittal balance of the knee, and all ligamentous structures in the coronal and sagittal plane were normal. The flexion-extension gaps and pneumatics appear to be intact and normal. 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 In the light of this, a quadricepsplasty was performed simply by doing an extensive lateral release allowing the quadriceps tendon to anteriorize from the lateral position and then using a [id number] type quadricepsplasty from the medial retinacula tissues at the level of the joint lint right up into the distal one-third of the femoral soft tissue bed. A [id number] with FiberWire and No. 1 Vicryl performed. This was a routine quadricepsplasty afforded. In order to immobilize the quadriceps tendon, extensive synovectomy of the actual knee itself had to be performed because of fibrotic tissues throughout. The quadriceps repair was appreciated and once performed, the knee was flexed to 90 degrees with excellent tracking of the patella in the quadriceps groove of the femoral component. My concerns remain the lateral soft tissue envelop and the precarious blood supply to this area, but with meticulous care, a subcutaneous tissue repair was performed. This was with No. 1 Vircyl, this was in multiple layers, and the skin was closed with imc. This completed a complex wound closure, and 1/8-inch Hemovac drain was inserted. A wooly light dressing applied, and the plan is to place the patient in a brace which will be held in position in the extended position for 6 weeks but continuous passive motion exercising at home from 0 to 60 degrees when at rest will commence. This to keep the soft tissues pliable and mobile. A watertight sealed repair was performed with multiple sutures. MD COURTNEY Thomson/[id number]
--- NOTE | 2018-06-08 16:53 | CONSULT ---
Consultation: REQUESTING PROVIDER: Dr. Kamar Pickard CONSULT REQUEST: We have been asked to medically evaluate this patient post- operatively. HISTORY OF PRESENT ILLNESS: 62 year-old female with a PMH significant for HTN, atrial fibrillation on Eliquis, s/p left total knee replacement 02/02/18, and s/p left lateral patellar retinacular release and quadricepsplasty earlier today. REVIEW OF SYSTEMS: CONSTITUTIONAL: Absent: fever, chills, diaphoresis, generalized weakness, malaise, loss of appetite, weight change HEENT: Absent: rhinorrhea, nasal congestion, throat pain, throat swelling, difficulty swallowing, mouth swelling, ear pain, eye pain, visual changes CARDIOVASCULAR: Absent: chest pain, syncope, palpitations, irregular heart rate, lightheadedness , peripheral edema RESPIRATORY: Absent: cough, shortness of breath, dyspnea with exertion, orthopnea, wheezing, stridor, hemoptysis GASTROINTESTINAL: Absent: abdominal pain, abdominal distension, nausea, vomiting, diarrhea, constipation, melena, hematochezia GENITOURINARY: Absent: dysuria, frequency, urgency, hesitancy, hematuria, flank pain, genital pain MUSCULOSKELETAL: Absent: myalgia, arthralgia, joint swelling, back pain, neck pain SKIN: Absent: rash, itching, pallor HEMATOLOGIC/IMMUNOLOGIC: Absent: easy bleeding, easy bruising, lymphadenopathy, frequent infections ENDOCRINE: Absent: unexplained weight gain, unexplained weight loss, heat intolerance, cold intolerance NEUROLOGIC: Absent: headache, focal weakness or paresthesias, dizziness, unsteady gait, seizure, mental status changes, bladder or bowel incontinence PSYCHIATRIC: Absent: anxiety, depression, suicidal or homicidal ideation, hallucinations. PHYSICAL EXAMINATION Vital Signs - 24 hr 06/08/18 06/08/18 06/08/18 07:04 10:56 11:00 Temperature 97.8 F 97.5 F L 97.5 F L Pulse Rate 48 L 70 70 Respiratory 18 16 16 Rate Blood Pressure 123/57 L 129/69 120/67 O2 Sat by Pulse 96 96 Oximetry (%) GENERAL: Awake, alert, and fully oriented, in no acute distress. HEAD: Normal with no signs of trauma. EYES: Pupils equal, round and reactive to light, extraocular movements intact, sclera anicteric, conjunctiva clear. No lid lag. EARS, NOSE, THROAT: Ears normal, nares patent, oropharynx clear without exudates. Moist mucous membranes. NECK: Normal range of motion, supple without lymphadenopathy, JVD, or masses. LUNGS: Breath sounds equal, clear to auscultation bilaterally. No wheezes, and no crackles. No accessory muscle use. HEART: Regular rate and rhythm, S1 and S2 without murmur, rub or gallop. ABDOMEN: Soft, nontender, not distended, normoactive bowel sounds UPPER EXTREMITIES: 2+ pulses, warm, well-perfused. No cyanosis. No clubbing. Cap refill <2 seconds. No peripheral edema. LOWER EXTREMITIES: SCDs, TEDs bilaterally; left surgical wrapping c/d/i; Hemovac drain dark sanguinous drainage; left leg in locked brace NEUROLOGICAL: Cranial nerves II-XII intact. Normal speech. Active Medications Generic Name Dose Route Start Last Admin Trade Name Freq PRN Reason Stop Dose Admin Acetaminophen 650 mg 06/08/18 12:00 06/08/18 12:14 Tylenol - PO Not Given Q6H SHARON Al Hydroxide/Mg Hydroxide 30 ml 06/08/18 11:18 Mylanta Oral Suspension - PO Q4H PRN DYSPEPSIA Alprazolam 0.25 mg 06/08/18 11:18 Xanax - PO Q8H PRN ANXIETY Apixaban 5 mg 06/08/18 22:00 Eliquis - PO BID SHARON Aspirin 81 mg 06/09/18 08:00 Asa - PO DAILY@0800 SHARON Fentanyl 50 mcg 06/08/18 10:38 06/08/18 11:15 Sublimaze Injection - IVPUSH 50 mcg [id number] PRN Administration PAIN-PACU ORDER X 4 DOSES ONLY Cefazolin Sodium/Dextrose 2 gm in 50 mls @ 100 mls/hr 06/08/18 18:00 Ancef 2 Gm Premixed Ivpb - IVPB 06/09/18 02:14 Q8H-IV SHARON Lactated Ringer's 1,000 mls @ 125 mls/hr 06/08/18 11:30 06/08/18 12:14 Lactated Ringers Solution IV 06/09/18 06:00 Not Given ASDIR SHARON Magnesium Hydroxide 30 ml 06/08/18 11:18 Milk Of Magnesia - PO PRN PRN CONSTIPATION Metoprolol Succinate 25 mg 06/09/18 10:00 Toprol Xl - PO DAILY [facility] Ondansetron HCl 4 mg 06/08/18 11:18 06/08/18 11:13 Zofran Injection IVPUSH 4 mg Q6H PRN Administration NAUSEA Oxycodone HCl 5 mg 06/08/18 10:39 06/08/18 11:45 Roxicodone - PO 5 mg Q3H PRN Administration PAIN LEVEL 1-5 Oxycodone HCl 10 mg 06/08/18 10:39 Roxicodone - PO Q3H PRN PAIN LEVEL 6-10 Oxycodone HCl 10 mg 06/08/18 22:00 Oxycontin - PO 06/11/18 10:39 BID [facility] Pantoprazole Sodium 40 mg 06/09/18 10:00 Protonix - PO DAILY [facility] Senna/Docusate Sodium 2 tablet 06/08/18 22:00 Pericolace - PO BID [facility] ASSESSMENT/PLAN: 62 year-old female with a PMH significant for anxiety, s/p left total knee replacement 02/02/18, and s/p left lateral patellar retinacular release and quadricepsplasty earlier today. Left lateral patellar retinacular release and quadricepsplasty --POD #0 --perioperative antibiotics per surgery --pain management per surgery --ASA 81mg daily --bowel regimen --incentive spirometry --Hemovac drain, monitor output Paroxysmal atrial fibrillation --diagnosed in March 2018 while in OR here at [facility]; has been following with Dr. Francie Bullock, transportation maintenance operator, [place] --presently in sinus rhythm; get ECG --continue Toprol XL for rate control --continue Eliquis BID --telemetry monitoring Anxiety --alprazolam PRN Dispo: We will continue to follow the patient. Thank you for this consultative opportunity. Visit type - Emergency Visit Emergency Visit: No - New Patient This patient is new to me today: Yes Date on this admission: 06/08/18 - Critical Care Critical Care patient: No
[2018-06-08] MEDS: CEFAZOLIN 2 GM/D5W 2 GM/50 ML ML IVPB SCH (17:21)
[2018-06-08] MEDS: APIXABAN 5 MG TABLET PO SCH (21:27)
[2018-06-08] MEDS: SENNOSIDES/DOCUSATE COMBO (SENNA PLUS) TABLET (UD) PO SCH (21:28)
[2018-06-08] MEDS: oxyCODONE HCL 10 MG SUSTAINED ACTING TABLET PO SCH (21:28)
[2018-06-09] MEDS: CEFAZOLIN 2 GM/D5W 2 GM/50 ML ML IVPB SCH (01:22)
[2018-06-09] MEDS: ACETAMINOPHEN 325 MG TABLET (FP) PO SCH ×4 (03:11→14:43)
[2018-06-09] MEDS ORDERED: ASPIRIN 81 MG CHEWABLE TABLETS PO SCH (08:00)
[2018-06-09] MEDS ORDERED: ASPIRIN 325 MG TABLET PO SCH (08:00)
[2018-06-09 08:15] LABS: HEMATOCRIT 36.5 % (32.4-45.2); HEMOGLOBIN 12.5 GM/dl (10.7-15.3); MCH 30.5 pg (25.7-33.7); MCHC 34.1 g/dl (32.0-36.0); MEAN CELL VOLUME 89.2 fl (80-96); MEAN PLT VOLUME 8.5 fl (7.5-11.1); PLATELET COUNT 195 K/MM3 (134-434); RBC 4.09 M/mm3 (3.60-5.2); RDW 13.1 % (11.6-15.6); WHITE BLOOD COUNT 12.7 K/mm3 (4.0-10.8)
[2018-06-09 08:25] LABS: ANION GAP 6 MMOL/L (8-16); BLOOD UREA NITROGEN 11 mg/dl (7-18); CALCIUM 8.7 mg/dl (8.4-10.2); CHLORIDE 106 mmol/L (98-107); CO2 27 mmol/L (22-28); CREATININE 0.8 mg/dl (0.6-1.3); GLUCOSE,RANDOM 121 mg/dl (74-106); MAGNESIUM 1.9 mg/dL (1.8-2.4); POTASSIUM 4.4 mmol/L (3.5-5.1); SODIUM 139 mmol/L (136-145)
--- NOTE | 2018-06-09 08:55 | DS ---
Physical Exam: SUBJECTIVE: Patient seen and examined OBJECTIVE: Vital Signs Temperature 98.1 F 06/09/18 05:00 Pulse Rate 60 06/09/18 05:00 Respiratory Rate 17 06/09/18 05:00 Blood Pressure 118/47 L 06/09/18 05:00 O2 Sat by Pulse Oximetry (%) 96 06/08/18 19:44 PHYSICAL EXAM GENERAL: The patient is awake, alert, and fully oriented, in no acute distress. HEAD: Normal with no signs of trauma. EYES: PERRL, extraocular movements intact, sclera anicteric, conjunctiva clear. ENT: Ears normal, nares patent, oropharynx clear without exudates, moist mucous membranes. NECK: Trachea midline, full range of motion, supple. LUNGS: breathing comfortably, no accessory muscle use. HEART: Regular rate and rhythm EXTREMITIES:warm, well-perfused, no edema. LLE dressing is clean with no erythema or discharge, drain in place with serosanguinous drainage. NEUROLOGICAL: Cranial nerves II through XII grossly intact. Normal speech, gait not observed. PSYCH: Normal mood, normal affect. SKIN: Warm, dry, normal turgor, no rashes or lesions noted. LABS CBC,CMP WBC 12.7 K/mm3 (4.0-10.8) H 06/09/18 07:35 RBC 4.09 M/mm3 (3.60-5.2) 06/09/18 07:35 Hgb 12.5 GM/dl (10.7-15.3) 06/09/18 07:35 Hct 36.5 % (32.4-45.2) 06/09/18 07:35 MCV 89.2 fl (80-96) 06/09/18 07:35 MCH 30.5 pg (25.7-33.7) 06/09/18 07:35 MCHC 34.1 g/dl (32.0-36.0) 06/09/18 07:35 RDW 13.1 % (11.6-15.6) 06/09/18 07:35 Plt Count 195 K/MM3 (134-434) 06/09/18 07:35 MPV 8.5 fl (7.5-11.1) 06/09/18 07:35 Sodium 139 mmol/L (136-145) 06/09/18 07:35 Potassium 4.4 mmol/L (3.5-5.1) 06/09/18 07:35 Chloride 106 mmol/L (98-107) 06/09/18 07:35 Carbon Dioxide 27 mmol/L (22-28) 06/09/18 07:35 Anion Gap 6 MMOL/L (8-16) L 06/09/18 07:35 BUN 11 mg/dl (7-18) 06/09/18 07:35 Creatinine 0.8 mg/dl (0.6-1.3) 06/09/18 07:35 Creat Clearance w eGFR > 60 (>60) 06/09/18 07:35 Random Glucose 121 mg/dl (74-106) H 06/09/18 07:35 Calcium 8.7 mg/dl (8.4-10.2) 06/09/18 07:35 Magnesium 1.9 mg/dL (1.8-2.4) 06/09/18 07:35 HOSPITAL COURSE: The patient was admitted to the Med-Surg Unit after an elective repair of their Left patellar instability. Now, s/p Lateral patellar retinacular release. An xray was obtained in the OR and confirmed hardware placementin good position with no fractures or dislocations. The day of surgery, the patient ambulated the hallways with assistance. Narcotic and non-narcotic pain management control was achieved with an oral and IV approach. POD #1, the surgical drain was removed fully intact and without incident. Patricia-operative IV ABX were administered. DVT prophylaxis was achieved with SCDs and early ambulation. The patient ambulated with Physical Therapy and no services were recommended upon discharge. Narcotic scripts and or muscle relaxants were checked with [employer] OFFIC[employer] prior to escibe. The discharge instructions and an oral pain management plan were reviewed with the patient. All questions answered. Above plan discussed with Dr. Pickard and agreed. Date of Admission:06/08/18 Date of Discharge: 06/09/18 Minutes to complete discharge: 20 Visit type - Case Type Case Type: Scheduled - Emergency Emergency Visit: No - New patient This patient is new to me today: Yes Date on this admission: 06/09/18
[2018-06-09] MEDS: oxyCODONE HCL 10 MG SUSTAINED ACTING TABLET PO SCH (09:33)
[2018-06-09] MEDS: APIXABAN 5 MG TABLET PO SCH (09:33)
[2018-06-09] MEDS: SENNOSIDES/DOCUSATE COMBO (SENNA PLUS) TABLET (UD) PO SCH (09:33)
--- NOTE | 2018-06-09 09:38 | PN ---
Progress Note (short form) - Note Progress Note: 63F POD1 s/p revision left TKR under spinal anesthetic with peripheral nerve blocks for post operative pain relief. Pt states that pain is well controlled and reports no anesthetic complications. AVSS. Motor and sensory exam intact in bilateral lower extremities. Continue current regimen.
[2018-06-09] MEDS ORDERED: PANTOPRAZOLE 40 MG TABLET (FP) PO SCH (10:00)
[2018-06-09] MEDS ORDERED: metoPROLOL SUCCINATE 25 MG TAB.SR.24H (FP) PO SCH (10:00)
--- NOTE | 2018-06-09 11:49 | PN ---
Physical Exam: SUBJECTIVE: Patient seen and examined oob to chair. Feeling well, drain is out, would like to go home today. OBJECTIVE: Vital Signs Period Temp Pulse Resp BP Sys/Alvarado Pulse Ox Last 24 Hr 96 F-98.3 F 52-71 17-20 117-138/47-87 96-99 GENERAL: Awake, alert, and fully oriented, in no acute distress. HEAD: Normal with no signs of trauma. EYES: Pupils equal, round and reactive to light, extraocular movements intact, sclera anicteric, conjunctiva clear. No lid lag. EARS, NOSE, THROAT: Ears normal, nares patent, oropharynx clear without exudates. Moist mucous membranes. NECK: Normal range of motion, supple without lymphadenopathy, JVD, or masses. LUNGS: Breath sounds equal, clear to auscultation bilaterally. No wheezes, and no crackles. No accessory muscle use. HEART: Regular rate and rhythm, S1 and S2 without murmur, rub or gallop. ABDOMEN: Soft, nontender, not distended, normoactive bowel sounds UPPER EXTREMITIES: 2+ pulses, warm, well-perfused. No cyanosis. No clubbing. Cap refill <2 seconds. No peripheral edema. LOWER EXTREMITIES: SCDs, TEDs bilaterally; left surgical wrapping c/d/i; left leg in locked brace NEUROLOGICAL: Cranial nerves II-XII intact. Normal speech. Laboratory Results - last 24 hr 06/09/18 06/09/18 07:35 07:35 WBC 12.7 H RBC 4.09 Hgb 12.5 Hct 36.5 MCV 89.2 MCH 30.5 MCHC 34.1 RDW 13.1 Plt Count 195 MPV 8.5 Sodium 139 Potassium 4.4 Chloride 106 Carbon Dioxide 27 Anion Gap 6 L BUN 11 Creatinine 0.8 Creat Clearance w eGFR > 60 Random Glucose 121 H Calcium 8.7 Magnesium 1.9 Active Medications Generic Name Dose Route Start Last Admin Trade Name Freq PRN Reason Stop Dose Admin Acetaminophen 650 mg 06/08/18 12:00 06/09/18 06:31 Tylenol - PO Not Given Q6H SHARON Al Hydroxide/Mg Hydroxide 30 ml 06/08/18 11:18 Mylanta Oral Suspension - PO Q4H PRN DYSPEPSIA Alprazolam 0.25 mg 06/08/18 11:18 06/08/18 20:07 Xanax - PO 0.25 mg Q8H PRN Administration ANXIETY Apixaban 5 mg 06/08/18 22:00 06/09/18 09:33 Eliquis - PO 5 mg BID [facility] Administration Aspirin 81 mg 06/09/18 08:00 06/09/18 09:32 Asa - PO 81 mg DAILY@0800 SHARON Administration Magnesium Hydroxide 30 ml 06/08/18 11:18 Milk Of Magnesia - PO PRN PRN CONSTIPATION Metoprolol Succinate 25 mg 06/09/18 10:00 06/09/18 09:33 Toprol Xl - PO 12.5 mg DAILY SHARON Administration Ondansetron HCl 4 mg 06/08/18 11:18 06/08/18 11:13 Zofran Injection IVPUSH 4 mg Q6H PRN Administration NAUSEA Oxycodone HCl 5 mg 06/08/18 10:39 06/08/18 11:45 Roxicodone - PO 5 mg Q3H PRN Administration PAIN LEVEL 1-5 Oxycodone HCl 10 mg 06/08/18 10:39 Roxicodone - PO Q3H PRN PAIN LEVEL 6-10 Oxycodone HCl 10 mg 06/08/18 22:00 06/09/18 09:33 Oxycontin - PO 06/11/18 10:39 Not Given BID [facility] Pantoprazole Sodium 40 mg 06/09/18 10:00 06/09/18 09:32 Protonix - PO 40 mg DAILY [facility] Administration Senna/Docusate Sodium 2 tablet 06/08/18 22:00 06/09/18 09:33 Pericolace - PO 2 tablet BID [facility] Administration ASSESSMENT/PLAN: 62 year-old female with a PMH significant for anxiety, 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 Left lateral patellar retinacular release and quadricepsplasty --POD #1 --perioperative antibiotics complete --pain well-managed on PO meds --ASA 81mg daily --bowel regimen --incentive spirometry --Hemovac drain out Paroxysmal atrial fibrillation --diagnosed in March 2018 while in OR here at [facility]; has been following with Dr. Francie Bullock, coding validator, [place] --ECG: sinus rhythm --continue Toprol XL for rate control --continue Eliquis BID --telemetry monitoring Anxiety --alprazolam PRN Dispo: We will continue to follow the patient. Thank you for this consultative opportunity. Visit type - Emergency Visit Emergency Visit: No - New Patient This patient is new to me today: No - Critical Care Critical Care patient: No
--- NOTE | 2018-06-09 12:15 | EKG ---
Test Reason : Blood Pressure : / mmHG Vent. Rate : 051 BPM Atrial Rate : 051 BPM P-R Int : 138 ms QRS Dur : 078 ms QT Int : 440 ms P-R-T Axes : 071 037 024 degrees QTc Int : 405 ms POOR DATA QUALITY, INTERPRETATION MAY BE ADVERSELY AFFECTED SINUS BRADYCARDIA CANNOT RULE OUT ANTERIOR INFARCT , AGE UNDETERMINED ABNORMAL ECG WHEN COMPARED WITH ECG OF 30-MAR-2018 12:44, SINUS RHYTHM HAS REPLACED ATRIAL FIBRILLATION VENT. RATE HAS DECREASED BY 25 BPM Confirmed by DURAN QUESADA MD ([id number]) on 06/09/2018 12:15:40 PM Referred By: Kamar Pickard Confirmed By:DURAN QUESADA MD
--- NOTE | 2018-06-09 14:00 | EKG ---
Test Reason : Blood Pressure : / mmHG Vent. Rate : 055 BPM Atrial Rate : 055 BPM P-R Int : 132 ms QRS Dur : 086 ms QT Int : 428 ms P-R-T Axes : 090 026 031 degrees QTc Int : 409 ms SINUS BRADYCARDIA WITH SINUS ARRHYTHMIA POSSIBLE ANTERIOR INFARCT (CITED ON OR BEFORE 08-JUN-2018) ABNORMAL ECG WHEN COMPARED WITH ECG OF 08-JUN-2018 22:45, NO SIGNIFICANT CHANGE WAS FOUND Confirmed by SANGITA JOSEPH, DURAN ([id number]) on 06/09/2018 2:00:16 PM Referred By: Kamar Pickard Confirmed By:DURAN QUESADA MD
[2018-06-09 14:29] VITALS: BP 104/43; PULSE 57; TEMP 97.7
== END 2018-06-09 15:27 | disposition home or self-care (01) | DRG 313 ==
LOC: FM/S 06:00
PROVIDERS: ADMIT Orthopaedic Surgery Orthopaedic Surgery of the Spine; ATTEND Orthopaedic Surgery Orthopaedic Surgery of the Spine
PROC: 0SBD0ZZ Excision of Left Knee Joint, Open Approach (ICD-10-PCS; 2018-06-08)
PROC: 0MNP0ZZ Release Left Knee Bursa and Ligament, Open Approach (ICD-10-PCS; 2018-06-08)
PROC: 0SQD0ZZ Repair Left Knee Joint, Open Approach (ICD-10-PCS; 2018-06-08)
PROC: 0KNR0ZZ Release Left Upper Leg Muscle, Open Approach (ICD-10-PCS; principal; 2018-06-08 08:58)
DX: T84.023A Instability of internal left knee prosthesis, initial encounter (principal); Y83.8 Other surgical procedures as the cause of abnormal reaction of the patient, or of later complication, without mention of misadventure at the time of the procedure; S83.006A Unspecified dislocation of unspecified patella, initial encounter; I10 Essential (primary) hypertension; I48.0 Paroxysmal atrial fibrillation; F41.9 Anxiety disorder, unspecified
CPT/HCPCS: 36415; 73560-TC-LT-FY; 80048; 83735; 85027; 93005; 94760; 97116-GP; 97161-GP